=== PATIENT | female | born 1955 | race African-American/Black ===

== ENCOUNTER 2022-12-25 05:22 | Inpatient (IN) | payer MEDICARE, MEDICAID ==
[~2022-12-25] VITALS: Ht 167.6 cm; Wt 97.1 kg
[2022-12-25] VITALS (58 sets, daily range): BP systolic 50–157; BP diastolic 43–98
[2022-12-25 06:08] LABS: CHLORIDE 106 mEq/L (98-107)
[2022-12-25] MEDS ORDERED: SODIUM CHLORIDE 0.9% 1,000 ML IV SCH (06:15)
[2022-12-25] MEDS ORDERED: THROMBIN (BOVINE) 5000 UNITS/VIAL TOP ONE (06:21)
[2022-12-25] MEDS ORDERED: GENTAMICIN SULF 40MG/ML 2ML VIAL ONE (06:22)
[2022-12-25] MEDS ORDERED: BACITRACIN 15GM TUBE TOP ONE (06:22)
[2022-12-25] MEDS ORDERED: LIDOCAINE HCL/EPINEPHRINE 1%-EPI 1:100,000 20 ML VIAL ONE (06:23)
[2022-12-25] MEDS ORDERED: ONDANSETRON HCL 4MG/2ML INJ ONE (06:53)
[2022-12-25] MEDS ORDERED: CEFAZOLIN SODIUM 1000MG/VIAL ONE (06:53)
[2022-12-25] MEDS ORDERED: ROCURONIUM BROMIDE 10MG/ML VIAL 5ML IV ONE (06:53)
[2022-12-25] MEDS ORDERED: DEXAMETHASONE 4MG/ML 1ML VIAL ONE (06:53)
[2022-12-25] MEDS ORDERED: SUCCINYLCHOLINE CHLORIDE 200MG/10ML IV ONE (06:53)
[2022-12-25] MEDS ORDERED: NEOSTIGMINE METHYLSULFATE 1MG/ML 10 ML VIAL ONE (06:53)
[2022-12-25] MEDS ORDERED: FENTANYL CITRATE/PF 50MCG/ML 2ML VIAL ONE (06:54)
[2022-12-25] MEDS ORDERED: GLYCOPYRROLATE 0.2 MG/ML 2ML VIAL ONE ×2 (06:54)
[2022-12-25] MEDS ORDERED: MIDAZOLAM HCL 2 MG/2 ML VIAL ONE (06:54)
[2022-12-25] MEDS ORDERED: PROPOFOL 200MG/20ML VIAL IV ONE (06:59)
[2022-12-25] MEDS ORDERED: ONDANSETRON HCL 4MG/2ML INJ IV PRN (07:15)
[2022-12-25] MEDS ORDERED: LABETALOL 5MG/ML SYR 20 MG/4 ML SYRINGE IV PRN (07:15)
[2022-12-25] MEDS: DEXT 5%/LACTATED RINGERS 1,000 ML IV SCH ×3 (07:15→23:09)
[2022-12-25] MEDS ORDERED: MEPERIDINE HCL/PF 25MG/ML CPJ IV PRN (07:15)
[2022-12-25] MEDS ORDERED: IBUP-2030 PO (07:37)
[2022-12-25] MEDS ORDERED: ATOR20TA65 PO (07:37)
[2022-12-25] MEDS ORDERED: SEMA0.25 SQ (07:37)
[2022-12-25] MEDS ORDERED: LISI-648 PO (07:37)
[2022-12-25] MEDS ORDERED: LEVO100T9 PO (07:37)
[2022-12-25] MEDS ORDERED: METF-416 PO (07:37)
[2022-12-25] MEDS: MORPHINE SULFATE 4 MG/ML CPJ (NOT FOR IM USE) IV PRN ×3 (09:37→20:31)
[2022-12-25] MEDS: HYDROMORPHONE HCL/PF 2MG/ML CPJ IV PRN ×2 (10:07→11:18)
[2022-12-25] MEDS: LEVOTHYROXINE SODIUM 100MCG TABLET PO SCH (10:30)
[2022-12-25] MEDS ORDERED: DEXTROSE 50% WATER 50ML SYRINGE IV PRN (10:30)
[2022-12-25] MEDS: DEXAMETHASONE 4MG/ML 1ML VIAL IV SCH ×3 (11:49→23:09)
[2022-12-25] MEDS: INSULIN LISPRO 100 UNITS/ML SUBCUT SCH ×3 (11:50→20:32)
[2022-12-25] MEDS: NICARDIPINE 100 MG in SODIUM CHLORIDE 0.9% 60 ML IV PRN ×2 (11:57→18:39)
[2022-12-25] MEDS: BLOOD SUGAR DIAGNOSTIC STRIP TEST SCH ×3 (12:26→20:18)
[2022-12-25] MEDS ORDERED: CEFAZOLIN SODIUM 1000MG/VIAL IV SCH (14:00)
[2022-12-25] MEDS: CEFAZOLIN 1000MG PREMIX 50 ML IV SCH ×2 (14:28→20:30)
[2022-12-25] MEDS ORDERED: IPRATROPIUM/ALBUTEROL 0.5-3(2.5)MG/3ML NEB HHN PRN (17:15)
[2022-12-25] MEDS: ATORVASTATIN CALCIUM 20MG TABLET PO SCH (20:30)
[2022-12-26] VITALS (84 sets, daily range): BP systolic 92–163; BP diastolic 33–110
[2022-12-26] MEDS: MORPHINE SULFATE 4 MG/ML CPJ (NOT FOR IM USE) IV PRN ×3 (01:41→20:40)
[2022-12-26] MEDS: NICARDIPINE 100 MG in SODIUM CHLORIDE 0.9% 60 ML IV PRN (03:07)
[2022-12-26 05:04] LABS: BASOPHILS % 0.1 % (0.0-2.0); HEMATOCRIT. 35.2 % (36.0-48.0); LYMPHOCYTES % 13.5 % (20.0-50.0); MEAN CORPUSCULAR HEMOGLOBIN 31.6 pg (28.0-32.0); MEAN CORPUSCULAR VOLUME 93.1 fL (81.0-99.0); MEAN PLATELET VOLUME 7.5 fl (7.4-10.4); MONOCYTES % 2.9 % (2.0-8.0); NEUTROPHILS % 83.5 % (40.0-76.0); PLATELET 318 x1000/uL (130-400); RED BLOOD CELL COUNT 3.78 mill/uL (4.2-5.4); RED CELL DISTRIBUTION WIDTH 14.2 % (11.6-14.6)
[2022-12-26 05:14] LABS: CHLORIDE 104 mEq/L (98-107)
[2022-12-26] MEDS: BLOOD SUGAR DIAGNOSTIC STRIP TEST SCH ×4 (05:39→20:38)
[2022-12-26] MEDS: CEFAZOLIN 1000MG PREMIX 50 ML IV SCH ×2 (05:56→14:39)
[2022-12-26] MEDS: DEXAMETHASONE 4MG/ML 1ML VIAL IV SCH ×2 (05:56→11:58)
[2022-12-26] MEDS: LEVOTHYROXINE SODIUM 100MCG TABLET PO SCH (05:56)
[2022-12-26] MEDS: INSULIN LISPRO 100 UNITS/ML SUBCUT SCH ×4 (05:57→20:53)
[2022-12-26] MEDS ORDERED: LISINOPRIL 10MG TABLET PO SCH ×2 (09:15→13:00)
[2022-12-26] MEDS: DEXT 5%/LACTATED RINGERS 1,000 ML IV SCH ×2 (11:58→23:15)
[2022-12-26] MEDS ORDERED: NALOXONE HCL 0.4MG/ML VIAL IV PRN (12:00)
[2022-12-26] MEDS ORDERED: LISINOPRIL 5MG TABLET PO SCH (14:14)
[2022-12-26] MEDS: HYDROCHLOROTHIAZIDE 12.5MG CAPSULE PO SCH (17:50)
[2022-12-26] MEDS: ATORVASTATIN CALCIUM 20MG TABLET PO SCH (20:39)
[2022-12-26] MEDS: LISINOPRIL 5MG TABLET PO SCH (20:39)
[2022-12-27] VITALS (94 sets, daily range): BP systolic 92–168; BP diastolic 40–114
[2022-12-27] MEDS: BLOOD SUGAR DIAGNOSTIC STRIP TEST SCH ×4 (05:38→20:47)
[2022-12-27] MEDS: LEVOTHYROXINE SODIUM 100MCG TABLET PO SCH (06:11)
[2022-12-27] MEDS: INSULIN LISPRO 100 UNITS/ML SUBCUT SCH ×4 (06:12→20:48)
[2022-12-27] MEDS: DEXT 5%/LACTATED RINGERS 1,000 ML IV SCH ×2 (08:53→19:59)
[2022-12-27] MEDS: HYDROCHLOROTHIAZIDE 12.5MG CAPSULE PO SCH (08:54)
[2022-12-27] MEDS: LISINOPRIL 5MG TABLET PO SCH ×2 (08:56→20:48)
[2022-12-27] MEDS: CLONIDINE 0.1MG TABLET PO PRN ×2 (14:20→23:07)
[2022-12-27] MEDS: NICARDIPINE 100 MG in SODIUM CHLORIDE 0.9% 60 ML IV PRN (14:21)
[2022-12-27] MEDS ORDERED: HYDRALAZINE 20MG/ML VIAL IV PRN (17:30)
[2022-12-27] MEDS: MORPHINE SULFATE 4 MG/ML CPJ (NOT FOR IM USE) IV PRN (20:48)
[2022-12-27] MEDS: ATORVASTATIN CALCIUM 20MG TABLET PO SCH (20:48)
[2022-12-28] VITALS (34 sets, daily range): BP systolic 103–149; BP diastolic 48–89
[2022-12-28] MEDS: DEXT 5%/LACTATED RINGERS 1,000 ML IV SCH (05:15)
[2022-12-28] MEDS: BLOOD SUGAR DIAGNOSTIC STRIP TEST SCH ×2 (05:48→12:20)
[2022-12-28] MEDS: LEVOTHYROXINE SODIUM 100MCG TABLET PO SCH (05:55)
[2022-12-28] MEDS: INSULIN LISPRO 100 UNITS/ML SUBCUT SCH ×2 (06:05→12:50)
[2022-12-28] MEDS: HYDROCHLOROTHIAZIDE 12.5MG CAPSULE PO SCH (08:12)
[2022-12-28] MEDS: LISINOPRIL 5MG TABLET PO SCH (08:13)
[2022-12-28] MEDS ORDERED: HYDR12.54 MT (13:54)
[2022-12-28] MEDS ORDERED: LISI-186 PO (13:54)
== END 2022-12-28 16:49 | disposition home or self-care (01) | DRG 471 ==
LOC: OR 05:22 → MICUSO 09:31 → 6EST 12-28 09:20
PROVIDERS: ADMIT Internal Medicine; ATTEND Internal Medicine
PROC: 0RG10A0 Fusion of Cervical Vertebral Joint with Interbody Fusion Device, Anterior Approach, Anterior Column, Open Approach (ICD-10-PCS; principal; 2022-12-25)
PROC: 0RB30ZZ Excision of Cervical Vertebral Disc, Open Approach (ICD-10-PCS; 2022-12-25)
PROC: 4A11X4G Monitoring of Peripheral Nervous Electrical Activity, Intraoperative, External Approach (ICD-10-PCS; 2022-12-25)
DX: M47.12 Other spondylosis with myelopathy, cervical region (principal); G82.50 Quadriplegia, unspecified; M50.01 Cervical disc disorder with myelopathy, high cervical region; E11.9 Type 2 diabetes mellitus without complications; E78.5 Hyperlipidemia, unspecified; Z20.822 Contact with and (suspected) exposure to COVID-19; E03.9 Hypothyroidism, unspecified; I10 Essential (primary) hypertension; J44.9 Chronic obstructive pulmonary disease, unspecified; Z79.84 Long term (current) use of oral hypoglycemic drugs
CPT/HCPCS: 36415; 71045; 72040; 72141; 76000; 80048; 80053; 82962; 83036; 85025; 86850; 86900; 87426; 88304; 88311; 94640; 95925; 95926; 95928; 95929; 97116; 97162; 97166; C1893; C9803; J0330; J0360; J0690; J1100; J1170; J1580; J1815; J2250; J2270; J2405; J2704; J2710; J3010; J3490; J7050; J7121; L0172; C1713